=== PATIENT | female | born 1960 | race Caucasian/White ===

== ENCOUNTER 2021-06-09 15:31 | Inpatient (IN) ==
[2021-06-09 17:12] LABS: Eosinophils % 0.4 %; Mean Corpuscular Volume 90.4 fL (83.0-100.0)
[2021-06-09 17:14] LABS: Basophils % 0.4 %; Hematocrit 40.5 % (35.3-44.9); Immature Granulocytes % 0.6 % (0-4); Immature Platelets 7.4 % (1.1-6.1); Lymphocytes # 1.7 K/mcL (0.6-4.6); Lymphocytes % 36.4 %; Mean Corpuscular HGB Conc 32.1 g/dL (31.6-35.5); Mean Platelet Volume 10.9 fL (9.4-12.4); Monocytes # 0.4 K/mcL (0.0-1.3); Monocytes % 8.1 %; Platelet Count 122 K/mcL (140-400); Red Blood Count 4.48 M/mcL (3.82-4.97); Red Cell Distribution Width 14.2 % (11.5-14.5); Segmented Neutrophils % 54.1 %; White Blood Count 4.7 K/mcL (4.3-11.1)
[2021-06-09 17:15] LABS: Neutrophils # 2.5 K/mcL (1.6-8.9)
[2021-06-09 17:32] LABS: BUN/Creatinine Ratio 17 (6-26); Blood Urea Nitrogen 9 mg/dL (8-23); Carbon Dioxide 28 mEq/L (23-29); Chloride 103 mEq/L (98-107); Glucose 60 mg/dL (70-105); Osmolality,Calculated 287 (280-300); Sodium 140 mEq/L (136-145); eGFR For African Americans > 60 (> 60); eGFR For Non-African Americans > 60 (> 60)
[2021-06-09 17:33] LABS: Troponin I < 0.03 ng/mL (< 0.04)
[2021-06-09] MEDS ORDERED: Ondansetron 4 MG/2 ML VIAL IVP ONE (18:24)
[2021-06-09] MEDS ORDERED: Isovue-370 500 ML BOTTLE IVP ONE (18:24)
[2021-06-09] MEDS ORDERED: Melatonin 3 MG TABLET PO PRN (21:01)
[2021-06-09] MEDS ORDERED: Naloxone 0.4 MG/ML INJ IVP PRN (21:01)
[2021-06-09] MEDS ORDERED: Acetaminophen 325 MG TABLET PO PRN (21:01)
[2021-06-09] MEDS ORDERED: *HR* HYDROcodone/Acet 5/325 mg TABLET PO PRN (21:01)
[2021-06-09] MEDS ORDERED: Ondansetron 4 MG/2 ML VIAL IVP PRN (21:01)
[2021-06-09] MEDS ORDERED: Saline Nasal Spray 44 ML BOTTLE NS PRN (21:02)
[2021-06-09] MEDS ORDERED: Saliva Stimulant 44.3ml BOTTLE PO PRN (21:02)
[2021-06-09] MEDS: Ipratropium 1 PUFF INHALER IH SCH (22:55)
[2021-06-10 01:33] LABS: Basophils % 0.3 %; Hematocrit 36.6 % (35.3-44.9); Hemoglobin 11.8 g/dL (11.5-15.4); Immature Granulocytes % 0.6 % (0-4); Lymphocytes # 0.9 K/mcL (0.6-4.6); Lymphocytes % 26.3 %; Mean Corpuscular HGB Conc 32.2 g/dL (31.6-35.5); Mean Corpuscular Hemoglobin 29.6 pg (28.0-33.3); Mean Platelet Volume 11.2 fL (9.4-12.4); Monocytes # 0.1 K/mcL (0.0-1.3); Neutrophils # 2.4 K/mcL (1.6-8.9); Platelet Count 112 K/mcL (140-400); Red Blood Count 3.98 M/mcL (3.82-4.97); Segmented Neutrophils % 68.8 %; White Blood Count 3.5 K/mcL (4.3-11.1)
[2021-06-10 01:37] LABS: INR 1.3; Prothrombin Time 14.1 Seconds (9.4-12.1)
[2021-06-10 01:47] LABS: Alanine Aminotransferase 15 Units/L (7-52); Albumin 3.7 g/dL (3.5-5.7); Alkaline Phosphatase 78 Units/L (34-104); Aspartate Amino Transferase 20 Units/L (13-39); BUN/Creatinine Ratio 19 (6-26); Bilirubin,Total 0.7 mg/dL (0.3-1.0); Blood Urea Nitrogen 11 mg/dL (8-23); Calcium 8.8 mg/dL (8.6-10.3); Carbon Dioxide 25 mEq/L (23-29); Chloride 102 mEq/L (98-107); Globulin 3.8 g/dL (2.4-3.5); Glucose 281 mg/dL (70-105); Magnesium 1.6 mg/dL (1.6-2.6); Osmolality,Calculated 294 (280-300); Phosphorous 2.9 mg/dL (2.7-4.5); Potassium 3.3 mEq/L (3.5-5.1); Sodium 137 mEq/L (136-145); Total Protein 7.5 g/dL (6.4-8.9); eGFR For African Americans > 60 (> 60); eGFR For Non-African Americans > 60 (> 60)
[2021-06-10] MEDS ORDERED: *HR* Dextrose 50 % in Water (Syg) 50 ML SYRINGE IVP PRN (03:32)
[2021-06-10] MEDS ORDERED: Dextrose Gel 15 GM/37.5 ML TUBE PO PRN ×2 (03:32)
[2021-06-10] MEDS ORDERED: D5% in Water 1,000 ML IVC PRN (03:32)
[2021-06-10] MEDS: Ipratropium 1 PUFF INHALER IH SCH ×2 (04:05→07:29)
[2021-06-10] MEDS ORDERED: *HR* Enoxaparin 40 MG/0.4 ML SYRINGE SQ SCH (06:00)
[2021-06-10 06:39] LABS: Lactate Dehydrogenase 167 Units/L (140-271)
[2021-06-10 06:57] LABS: Ferritin 146 ng/mL (10-120)
[2021-06-10] MEDS: Budesonide/Formoterol 160/4.5 1 PUFF INH IH SCH ×2 (07:30→20:35)
[2021-06-10 07:53] LABS: Estimated Average Glucose 143 mg/dl; Hemoglobin A1C 6.6 %
[2021-06-10] MEDS ORDERED: Artificial Tears SOLN 15 ML BOTTLE BOTH EYES SCH (08:00)
[2021-06-10] MEDS ORDERED: Ipratropium/Albuterol Neb 3 ML IH PRN (08:22)
[2021-06-10] MEDS ORDERED: Chlorhexidine Rinse 15 ML MOUTHWASH MM SCH (09:00)
[2021-06-10] MEDS: Insulin LISPRO 300 UNITS/3 ML VIAL SUBQ SCH ×3 (09:29→17:30)
[2021-06-10] MEDS: Cholecalciferol (D-3) 1,000 UNIT (25MCG) TABLET PO SCH (09:31)
[2021-06-10] MEDS: Insulin DETEMIR 100 UNIT/ML X5UNITS SUBQ SCH ×2 (09:31→09:49)
[2021-06-10] MEDS: Multivit/Ca/Min/Fe/FA 1 TAB TABLET PO SCH (09:31)
[2021-06-10] MEDS: MethylPREDNISolone 40 MG/ML VIAL IVP SCH ×2 (09:33→17:32)
[2021-06-10 10:10] LABS: C-Reactive Protein 14 mg/L (Less than 10)
[2021-06-10] MEDS: Ipratropium/Albuterol Neb 3 ML IH SCH ×3 (11:40→20:34)
[2021-06-10] MEDS ORDERED: Gabapentin 300 MG CAPSULE PO SCH (21:00)
[2021-06-10] MEDS ORDERED: *HR* LORazepam 0.5 MG TABLET PO ONE (22:00)
[2021-06-11] MEDS: Ipratropium/Albuterol Neb 3 ML IH SCH ×2 (04:10→07:22)
[2021-06-11] MEDS: MethylPREDNISolone 40 MG/ML VIAL IVP SCH (05:13)
[2021-06-11 06:55] LABS: Basophils % 0.5 %; Eosinophils # 0.1 K/mcL (0.0-0.6); Eosinophils % 2.2 %; Hematocrit 38.1 % (35.3-44.9); Hemoglobin 12.1 g/dL (11.5-15.4); Immature Granulocytes % 0.4 % (0-4); Lymphocytes # 2.1 K/mcL (0.6-4.6); Lymphocytes % 38.2 %; Mean Corpuscular HGB Conc 31.8 g/dL (31.6-35.5); Mean Corpuscular Volume 91.4 fL (83.0-100.0); Mean Platelet Volume 11.1 fL (9.4-12.4); Monocytes # 0.5 K/mcL (0.0-1.3); Monocytes % 8.8 %; Neutrophils # 2.8 K/mcL (1.6-8.9); Platelet Count 113 K/mcL (140-400); Red Blood Count 4.17 M/mcL (3.82-4.97); Red Cell Distribution Width 14.5 % (11.5-14.5); Segmented Neutrophils % 49.9 %; White Blood Count 5.6 K/mcL (4.3-11.1)
[2021-06-11 07:05] LABS: BUN/Creatinine Ratio 24 (6-26); Blood Urea Nitrogen 14 mg/dL (8-23); Calcium 8.7 mg/dL (8.6-10.3); Carbon Dioxide 28 mEq/L (23-29); Chloride 103 mEq/L (98-107); Glucose 151 mg/dL (70-105); Osmolality,Calculated 293 (280-300); Sodium 140 mEq/L (136-145); eGFR For African Americans > 60 (> 60); eGFR For Non-African Americans > 60 (> 60)
[2021-06-11] MEDS: Budesonide/Formoterol 160/4.5 1 PUFF INH IH SCH (07:22)
[2021-06-11] MEDS: Insulin LISPRO 300 UNITS/3 ML VIAL SUBQ SCH ×2 (08:15→13:07)
[2021-06-11] MEDS: Insulin DETEMIR 100 UNIT/ML X5UNITS SUBQ SCH (08:16)
[2021-06-11] MEDS: Multivit/Ca/Min/Fe/FA 1 TAB TABLET PO SCH (08:16)
[2021-06-11] MEDS: Cholecalciferol (D-3) 1,000 UNIT (25MCG) TABLET PO SCH (08:16)
[2021-06-11] MEDS ORDERED: Furosemide 20 MG/2 ML VIAL IVP SCH (09:00)
[2021-06-11 10:41] VITALS: BP 124/74; PULSE 83; TEMP 97.9
[2021-06-11] MEDS ORDERED: Potassium Chloride Elixir 20 MEQ/15 ML UDC PO ONE (11:12)
[2021-06-11 11:27] VITALS: O2SAT 90
== END 2021-06-11 16:08 | disposition home or self-care (01) | DRG 177 ==
LOC: EMEROOARM 15:31 → 3ANU 15:31
PROVIDERS: ADMIT Internal Medicine; ATTEND Internal Medicine